=== PATIENT | male | born 1940 | race Two or more races ===

== ENCOUNTER 2019-10-18 08:26 | Observation (INO) | payer MEDICARE ==
--- NOTE | 2019-10-18 08:39 | ER Document Report ---
ED General - General Chief Complaint: Cough Stated Complaint: COUGHING UP BLOOD Time Seen by Provider: 10/18/19 08:39 - HPI Notes: 78-year-old male with a medical history of COPD, gout, type 2 diabetes, hypertension, GERD, hyperlipidemia presents to the emergency room by private vehicle for complaints of shortness of breath, body aches, hemoptysis, abdominal pain bilateral leg swelling that started within the last few days. Patient recently traveled from [place] on October 08 by plane, arrived and since that time he has felt weak. Patient started to complain of the body aches, shortness of breath and hemoptysis yesterday. Daughter also reported that he had bilateral leg swelling since he came back from the plane. Patient has been a smoker for over 60 years and quit over a year ago, daughter states that since he has been at hotel he has not been able to sleep in a chair so she thinks this may be why he is coughing more. Patient states that he did have heart surgery with stents over 20 years ago, did have a stent placed in the right carotid last year as well as a coil for an aneurysm in the back of his head a year ago. Daughter also states that the patient has a spot that showed up on her chest x- ray and he is planned to have a CT of his chest back in [place] but has not happened thus far. Has not tried any [id number] medications. Denies any chest pain, nausea vomiting diarrhea, abdominal pain, bilateral leg swelling - Related Data Allergies/Adverse Reactions: No Known Allergies Allergy (Verified 10/18/19 09:33) Past Medical History - General Information source: Patient - Social History Smoking Status: Former Smoker Family History: Reviewed & Not Pertinent Physical Exam - Vital signs Vitals: Temp Pulse Resp BP Pulse Ox 100.6 F H 105 H 24 H 188/62 H 95 10/18/19 08:32 10/18/19 08:32 10/18/19 08:32 10/18/19 08:32 10/18/19 08:32 - Notes Notes: MEDICATIONS: I agree with the patient medications as charted by the RN. ALLERGIES: I agree with the allergies as charted by the RN. PAST MEDICAL HISTORY/PAST SURGICAL HISTORY: Reviewed and agree as charted by RN. SOCIAL HISTORY: Reviewed and agree as charted by RN. FAMILY HISTORY: No significant familial comorbid conditions directly related to patient complaint EXAM: Reviewed vital signs as charted by RN. PHYSICAL EXAMINATION:reviewed vital signs by RN GENERAL: Chronically ill well-nourished and in no acute distress. Ready of hearing HEAD: Atraumatic, normocephalic. EYES: Pupils equal round and reactive to light, extraocular movements intact, sclera anicteric, conjunctiva are normal. ENT: Nares patent, oropharynx clear without exudates. Moist mucous membranes. NECK: Normal range of motion, supple without lymphadenopathy LUNGS: Breath sounds clear to auscultation bilaterally and equal. No wheezes rales or rhonchi. HEART: Regular rate and rhythm without murmurs ABDOMEN: Soft, nontender, nondistended abdomen. No guarding, no rebound. No masses appreciated. Musculoskeletal: Normal range of motion, no pitting or edema. No cyanosis. Bilateral leg swelling. Distal pulses palpable +2 NEUROLOGICAL: Cranial nerves grossly intact. Speaks Uzbek, half Wolof, normal gait. Normal sensory, motor exams PSYCH: Normal mood, normal affect. SKIN: Warm, Dry, normal turgor, no rashes or lesions noted. Course - Re-evaluation Re-evalutation: 10/18/19 10:30 Slightly febrile, hypertensive and slightly tachycardic. CBC shows no leukocytosis however does have an increase in his segmented neutrophils. CMP shows a creatinine is 0.88, BUN 24, BNP is 43, lactic is 1.9. Rapid strep negative. Troponin negative. CRP 17.9. chest x-ray does show right lower lobe pneumonia, with possible atelectasis on the left. Per PERC rule, PE cannot be e xcluded due to patient being over 50 years old, heart rate of 100, leg swelling, hemoptysis. Bilateral lower venous Dopplers negative for DVTs. CTA of the chest shows right upper lobe, right middle lobe and right lower lobe pneumonia as well as left lower lobe pneumonia, no PE, no dissection noted. Updated daughter about patient's status, waiting to see if patient will be accepted for admission via phone call. consulted with with the hospitalist, , for admission due to the fact that patient does have extensive pneumonia majority of his lobes, is still coughing up blood, is here out of town does not have any resources available to him medically, for possible admission. Dr. Bourne will place patient in observation, COVID test pending for management of his pneumonia and coughing up blood to the COVID section of the hospital. Patient and family were agreeable this plan of care. - Vital Signs Vital signs: Temp Pulse Resp BP Pulse Ox 98.8 F 73 20 144/51 H 98 10/18/19 17:37 10/18/19 17:37 10/18/19 17:37 10/18/19 17:37 10/18/19 17:37 - Laboratory Result Diagrams: 10/18/19 09:25 10/18/19 09:25 Laboratory results interpreted by me: 10/18/19 10/18/19 10/18/19 09:25 09:25 09:25 RBC 3.74 L Hgb 11.1 L Hct 33.1 L RDW 17.2 H Seg Neutrophils % 80.8 H BUN 25 H Glucose 223 H Alkaline Phosphatase 183 H C-Reactive Protein NT-Pro-B Natriuret Pep 483 H Urine Protein Urine Glucose (UA) Urine Ketones Urine Urobilinogen Ur Leukocyte Esterase 10/18/19 10/18/19 09:25 11:45 RBC Hgb Hct RDW Seg Neutrophils % BUN Glucose Alkaline Phosphatase C-Reactive Protein 17.4 H NT-Pro-B Natriuret Pep Urine Protein 100 H Urine Glucose (UA) 150 H Urine Ketones TRACE H Urine Urobilinogen 4.0 H Ur Leukocyte Esterase TRACE H Discharge - Discharge Clinical Impression: Pneumonia Condition: Stable Disposition: ADMITTED OBSERVATION Admitting Provider: [facility] Admitted: Telemetry
[2019-10-18] MEDS ORDERED: ACETAMINOPHEN 325 MG TABLET PO ONE (09:30)
[2019-10-18 09:41] LABS: ABSOLUTE LYMPHOCYTES (AUTO) 1.1 10^3/uL (0.5-4.7); ABSOLUTE MONOCYTES (AUTO) 0.5 10^3/uL (0.1-1.4); ABSOLUTE NEUT (AUTO) 6.8 10^3/uL (1.7-8.2); BASOPHILS % (AUTO) 0.2 % (0-2); EOSINOPHILS % (AUTO) 0.5 % (0-6); HEMATOCRIT 33.1 % (37.9-51.0); HEMOGLOBIN 11.1 g/dL (13.5-17.0); MEAN CORPUSCULAR HEMOGLOBIN 29.8 pg (27.0-33.4); MEAN CORPUSCULAR HGB CONC 33.6 g/dL (32.0-36.0); MEAN CORPUSCULAR VOLUME 89 fl (80-97); MONOCYTES % (AUTO) 5.5 % (3-13); PLATELET COUNT 174 10^3/uL (150-450); RED BLOOD COUNT 3.74 10^6/uL (4.35-5.55); RED CELL DISTRIBUTION WIDTH 17.2 % (11.5-14.0); SEGMENTED NEUTROPHILS % (AUTO) 80.8 % (42-78); TOTAL CELLS COUNTED % (AUTO) 100 %; WHITE BLOOD COUNT 8.4 10^3/uL (4.0-10.5)
[2019-10-18 10:01] LABS: PROTHROMBIN TIME 12.4 SEC (11.4-15.4)
[2019-10-18 10:02] LABS: PARTIAL THROMBOPLASTIN TIME 32.9 SEC (23.5-35.8)
[2019-10-18 10:10] LABS: BLOOD UREA NITROGEN 25 mg/dL (7-20); CALCIUM 8.9 mg/dL (8.4-10.2); GLUCOSE 223 mg/dL (75-110)
[2019-10-18 10:11] LABS: ALBUMIN 4.3 g/dL (3.5-5.0); ALKALINE PHOSPHATASE 183 U/L (38-126); ANION GAP 11 (5-19); ASPARTATE AMINO TRANSFERASE 23 U/L (17-59); BILIRUBIN,DIRECT 0.2 mg/dL (0.0-0.4); BILIRUBIN,TOTAL 0.9 mg/dL (0.2-1.3); CARBON DIOXIDE 26 mmol/L (22-30); CHLORIDE 105 mmol/L (98-107); POTASSIUM 4.1 mmol/L (3.6-5.0); TOTAL PROTEIN 7.5 g/dL (6.3-8.2)
--- NOTE | 2019-10-18 10:14 | RADIOLOGY REPORT (SQ) ---
EXAM DESCRIPTION: CHEST SINGLE VIEW IMAGES COMPLETED DATE/TIME: 10/18/2019 8:54 am REASON FOR STUDY: Hemoptysis, fever COMPARISON: None. EXAM PARAMETERS: NUMBER OF VIEWS: One view. TECHNIQUE: Single frontal radiographic view of the chest acquired. RADIATION DOSE: NA LIMITATIONS: None. FINDINGS: LUNGS AND PLEURA: Focal consolidation in the right upper lobe. Patchy areas of opacity in the left lower lobe. No pleural effusion or pneumothorax. MEDIASTINUM AND HILAR STRUCTURES: No masses. Contour normal. HEART AND VASCULAR STRUCTURES: Moderate cardiomegaly. No pulmonary vascular congestion. BONES: No acute findings. HARDWARE: None in the chest. OTHER: No other significant finding. IMPRESSION: Right upper lobe pneumonia. Atelectasis versus consolidation left lower lobe. TECHNICAL DOCUMENTATION: JOB ID: [id number] 2010 [employer]- All Rights Reserved Reading location - IP/workstation name: [email or web address]
[2019-10-18 10:23] LABS: TROPONIN I 0.012 ng/mL
[2019-10-18] MEDS ORDERED: NORMAL SALINE 1000 ML 1,000 ML IV ONE (11:37)
[2019-10-18 12:07] LABS: APPEARANCE,URINE CLEAR; BILIRUBIN,URINE NEGATIVE (NEGATIVE); COLOR,URINE YELLOW; GLUCOSE, URINE 150 mg/dL (NEGATIVE); KETONES,URINE TRACE mg/dL (NEGATIVE); LEUKOCYTE ESTERASE,URINE TRACE (NEGATIVE); NITRITE,URINE NEGATIVE (NEGATIVE); PROTEIN,URINE 100 mg/dL (NEGATIVE); URINE SPECIFIC GRAVITY 1.021
--- NOTE | 2019-10-18 13:24 | RADIOLOGY REPORT (SQ) ---
EXAM DESCRIPTION: VENOUS BILATERAL LOWER IMAGES COMPLETED DATE/TIME: 10/18/2019 11:35 am REASON FOR STUDY: bilateral leg swelling, recent travel, SOB COMPARISON: None. TECHNIQUE: Dynamic and static de [place]antos scale and color images acquired of both lower extremity venous sy stems. Selected spectral images acquired with additional compression and augmentation maneuvers. Imag es stored on PACS. LIMITATIONS: None. FINDINGS: RIGHT LEG COMMON FEMORAL AND FEMORAL: Normal phasicity, compression and augmentation. No visualized echogenic m aterial on de [place] santos scale. No defects on color images. POPLITEAL: Normal compression and augmentation. No visualized echogenic material on de [place]antos scale. No de fects on color images. CALF VESSELS: Limited evaluation. Normal compression and augmentation is. No visualized echogenic ma terial on de [place] santos scale. No defects on color image. GSV AND SSV: Normal compression. No visualized echogenic material on de [place] santos scale. No defects on color images. ANY DEEP VENOUS INSUFFICIENCY: Not evaluated. ANY EVIDENCE OF POPLITEAL CYST: No. OTHER: No other significant finding. LEFT LEG COMMON FEMORAL AND FEMORAL: Normal phasicity, compression and augmentation. No visualized echogenic m aterial on de [place] santos scale. No defects on color images. POPLITEAL: Normal compression and augmentation. No visualized echogenic material on de [place]antos scale. No de fects on color images. CALF VESSELS: Limited evaluation. Normal compression and augmentation as visualized. No visualized e chogenic material on de [place] santos scale. No defects on color images. GSV AND SSV: Normal compression. No visualized echogenic material on de [place]antos scale. No defects on color images. ANY DEEP VENOUS INSUFFICIENCY: Not evaluated. ANY EVIDENCE POPLITEAL CYST: No. OTHER: No other significant finding. IMPRESSION: NO EVIDENCE DVT OR SVT IN EITHER LEG. TECHNICAL DOCUMENTATION: JOB ID: [id number] 2010 [employer]- All Rights Reserved Reading location - IP/workstation name: [email or web address]
--- NOTE | 2019-10-18 13:47 | RADIOLOGY REPORT (SQ) ---
EXAM DESCRIPTION: CTA CHEST IMAGES COMPLETED DATE/TIME: 10/18/2019 12:16 pm REASON FOR STUDY: Hemoptysis, fever, shortness of breath. Consolidation in the right upper lobe on chest radiograph. COMPARISON: Chest radiograph same date. TECHNIQUE: CT scan of the chest performed using helical scanning technique with dynamic intravenous contrast injection. Images reviewed with lung, soft tissue and bone windows. Reconstructed coronal and sagittal MPR images reviewed. Additional 3 dimensional post-processing performed to develop Maximal Intensity Projection images (AZ P). All images stored on PACS. All CT scanners at this facility use dose modulation, iterative reconstruction, and/or weight based d osing when appropriate to reduce radiation dose to as low as reasonably achievable (ALARA). [facility]: Dose Right [facility]: CareDose [facility]: Dose Right [facility]: Teradose 4D [facility]: [employer] CONTRAST TYPE AND DOSE: contrast/concentration: Isovue 350.00 mmol/ml; Total Contrast Delivered: 69. 0 ml; Total Saline Delivered: 77.0 ml Contrast bolus optimized for the pulmonary arteries. Not diagnostic for the aorta. RENAL FUNCTION: GFR > 60. RADIATION DOSE: CT Rad equipment meets quality standard of care and radiation dose reduction techniq ues were employed. CTDIvol: 16.6 - 19.8 mGy. DLP: 584 mGy-cm. . LIMITATIONS: None. FINDINGS: LUNGS AND PLEURA: There is patchy consolidation in the right upper lobe, right middle lobe and left lower lobe and to a lesser extent the right lower lobe. No pleural effusion or pneumothora x. AORTA AND GREAT VESSELS: No aneurysm. Contrast bolus not optimized for the aorta. HEART: There are pericardial calcifications. No pericardial effusion. No significant coronary artery calcifications. PULMONARY ARTERIES: No emboli visualized in the main pulmonary arteries or the segmental branches. HILAR AND MEDIASTINAL STRUCTURES: No identified masses or abnormal nodes. HARDWARE: None in the chest. UPPER ABDOMEN: No significant findings. Limited exam. THYROID AND OTHER SOFT TISSUES: No masses. No adenopathy. BONES: No acute or significant finding. 3D MIPS: Confirm above findings. OTHER: No other significant finding. IMPRESSION: 1. No pulmonary embolism. 2. Multifocal pneumonia. 3. Pericardial calcifications. No pericardial effusion. COMMENT: Quality ID # [id number]: Final reports with documentation of one or more dose reduction techniques (e.g., Automated exposure control, adjustment of the mA and/or kV according to patient size, use of iterative reconstruction technique) TECHNICAL DOCUMENTATION: JOB ID: [id number] 2010 [employer]- All Rights Reserved Reading location - IP/workstation name: [id number]
[2019-10-18 15:13] LABS: C-REACTIVE PROTEIN 17.4 mg/L (<10.0)
[2019-10-18] MEDS ORDERED: IPRATROPIUM/ALBUTEROL 0.5-2.5 MG/3 ML AMPUL NEB PRN (15:48)
[2019-10-18 15:52] LABS: FERRITIN 23.8 ng/mL (17.9-464.0)
--- NOTE | 2019-10-18 17:03 | PDOC H&P ---
History of Present Illness Admission Date/PCP: October 18, 2019 Patient complains of: Hemoptysis History of Present Illness: BRIGID LOPEZ is a 78 year old male, PMH of T2DM,HLD, CAD with stent, COPD, former smoker who came in the ED due to hemoptysis. Patient speaks limited Malay and an hooker machine tender was used. He flew in [facility] to visit his son and is currently staying at a hotel. He developed hemoptysis last night described as streaks of blood mixed with sputum with associated subjective fever and chills. Per her daughter he would start coughing when he lays down in bed and also feels SOB. He also complains of bilateral leg swelling. He denies any SOB, exertional dyspnea, chest pain, palpitations. Daughter also states that the patient has a spot that showed up on her chest x-ray and he is planned to have a CT of his chest back in [place] but has not happened thus far per ED notes. In the ED, BP 124/52, HR 76, RR 17, T 100.6. CBC and CMP was unremarkable. CXR showed Right upper lobe pneumonia. Atelectasis vs consolidation left lower lobe. He was tested for COVID 19. He is admitted for observation. Currently has minimal hemoptysis, saturating 99% on room air. Past Medical History Cardiac Medical History: Reports: Hyperlipidema, Hypertension Pulmonary Medical History: Reports: Chronic Obstructive Pulmonary Disease (COPD) Neurological Medical History: Reports: Other - aneurysm brain s/p coiling Endocrine Medical History: Reports: Diabetes Mellitus Type 2 GI Medical History: Reports: None Musculoskeltal Medical History: Reports: None Skin Medical History: Reports: None Psychiatric Medical History: Reports: None Traumatic Medical History: Reports: None Hematology: Reports: None Infectious Medical History: Reports: None Past Surgical History Past Surgical History: Reports: Coronary Stent, Vascular Surgery - post aneu rysmal coiling Social History Information Source: Patient Lives with: Family Smoking Status: Former Smoker Cigarettes Packs Per Day: 1 Number of Years Smokin Frequency of Alcohol Use: None Hx Recreational Drug Use: No Drugs: None Family History Parental Family History Reviewed: Yes - Hx of TB mother Children Family History Reviewed: Yes Sibling(s) Family History Reviewed.: Yes Medication/Allergy Home Medications: Aspirin [Adult Low Dose Aspirin EC] 81 mg PO DAILY 10/18/19 Atorvastatin Calcium [Lipitor 80 mg Tablet] 80 mg PO DAILY 10/18/19 Glipizide [Glocotrol 5 Mg Tablet] 5 mg PO BID 10/18/19 Indomethacin 50 mg PO BID 10/18/19 Metformin HCl [Glucophage 500 mg Tablet] 500 mg PO BIDACBS 10/18/19 Pantoprazole Sodium 20 mg PO DAILY 10/18/19 Pioglitazone HCl [Actos 30 mg Tablet] 30 mg PO DAILY 10/18/19 Allergies/Adverse Reactions: No Known Allergies Allergy (Verified 10/18/19 09:33) Review of Systems Constitutional: PRESENT: chills Cardiovascular: PRESENT: orthropnea Respiratory: PRESENT: hemoptysis Gastrointestinal: PRESENT: as per HPI Genitourinary: PRESENT: as per HPI Neurological: PRESENT: weakness Physical Exam Vital Signs: Temp Pulse Resp BP Pulse Ox 99.1 F 105 H 16 146/61 H 97 10/18/19 10:59 10/18/19 08:32 10/18/19 15:01 10/18/19 15:01 10/18/19 15:01 Intake & Output 10/17/19 10/18/19 10/19/19 06:59 06:59 06:59 Intake Total 1000 Balance 1000 Weight 88 kg General appearance: PRESENT: no acute distress, cooperative, other - maltese speaking, limited pashto Eye exam: PRESENT: EOMI, PERRLA Mouth exam: PRESENT: moist Neck exam: PRESENT: full ROM. ABSENT: JVD Respiratory exam: PRESENT: rales, symmetrical, unlabored. ABSENT: wheezes Cardiovascular exam: PRESENT: RRR, +S1, +S2 Pulses: PRESENT: +2 pedal pulses bilateral GI/Abdominal exam: PRESENT: normal bowel sounds, soft. ABSENT: rebound, tenderness Rectal exam: PRESENT: deferred Extremities exam: PRESENT: +2 edema Musculoskeletal exam: PRESENT: full ROM Neurological exam: PRESENT: alert, oriented to person, oriented to place, oriented to time Results Laboratory Results: 10/18/19 09:25 10/18/19 09:25 10/18/19 10/18/19 10/18/19 09:25 09:25 09:25 WBC 8.4 RBC 3.74 L Hgb 11.1 L Hct 33.1 L MCV 89 MCH 29.8 MCHC 33.6 RDW 17.2 H Plt Count 174 Seg Neutrophils % 80.8 H Sodium 142.2 Potassium 4.1 Chloride 105 Carbon Dioxide 26 Anion Gap 11 BUN 25 H Creatinine 0.88 Est GFR ( Amer) > 60 Glucose 223 H Lactic Acid 1.9 Calcium 8.9 Ferritin Total Bilirubin 0.9 AST 23 Alkaline Phosphatase 183 H C-Reactive Protein Total Protein 7.5 Albumin 4.3 Urine Color Urine Appearance Urine pH Ur Specific [place] Urine Protein Urine Glucose (UA) Urine Ketones Urine Blood Urine Nitrite Ur Leukocyte Esterase Urine WBC (Auto) Urine RBC (Auto) 10/18/19 10/18/19 09:25 11:45 WBC RBC Hgb Hct MCV MCH MCHC RDW Plt Count Seg Neutrophils % Sodium Potassium Chloride Carbon Dioxide Anion Gap BUN Creatinine Est GFR ( Amer) Glucose Lactic Acid Calcium Ferritin 23.80 Total Bilirubin AST Alkaline Phosphatase C-Reactive Protein 17.4 H Total Protein Albumin Urine Color YELLOW Urine Appearance CLEAR Urine pH 5.0 Ur Specific [place] 1.021 Urine Protein 100 H Urine Glucose (UA) 150 H Urine Ketones TRACE H Urine Blood NEGATIVE Urine Nitrite NEGATIVE Ur Leukocyte Esterase TRACE H Urine WBC (Auto) 1 Urine RBC (Auto) 5 10/18/19 09:25 Troponin I 0.012 NT-Pro-B Natriuret Pep 483 H Impressions: Chest X-Ray 10/18/19 08:39 IMPRESSION: Right upper lobe pneumonia. Atelectasis versus consolidation left lower lobe. Venous Doppler Study 10/18/19 09:30 IMPRESSION: NO EVIDENCE DVT OR SVT IN EITHER LEG. Chest/Abdomen CTA 10/18/19 09:37 IMPRESSION: 1. No pulmonary embolism. 2. Multifocal pneumonia. 3. Pericardial calcifications. No pericardial effusion. Assessment and Plan - Diagnosis (1) Pneumonia Qualifiers: Pneumonia type: due to unspecified organism Laterality: right Lung location: upper lobe of lung Qualified Code(s): J18.9 - Pneumonia, unspecified organism Is this a current diagnosis for this admission?: Yes Plan: - came in with 1 day hx of minimal hemoptysis, fever, lower leg edema - no known COVID exposure, flew in from [place] 2 days prior - known COPD not on inhaler, former smoker - hx of spot in his lung per daughter - stable VS, not requiring O2 support - WBC 11.1, BUN 25 crea 0.88 - COVID pending, - CTA negative for PE, multifocal pneumonia - CXR right upper lobe pneumonia. Atelectasis or consolidation left lower lobe. - admit for Observation - will start on Ceftri/azithro for CAP (2) Suspected 2019 novel coronavirus infection Is this a current diagnosis for this admission?: Yes Plan: - came in with hemoptysis, fever, orthopnea - CXR Right upper lobe pneumonia - CTA chest multifocal pneumonia (3) Type 2 diabetes mellitus Qualifiers: Diabetes mellitus complication status: without complication Is this a current diagnosis for this admission?: Yes Plan: - Sliding scale insulin - hold glipizide, metformin and pioglitazone - accucheck - hypoglycemia protocol (4) CAD (coronary artery disease) Qualifiers: Coronary Disease-Associated Artery/Lesion type: unspecified vessel or lesion type [place] vs. transplanted heart: [place] heart Associated angina: without angina Qualified Code(s): I25.10 - Atherosclerotic heart disease of [place] coronary artery without angina pectoris Is this a current diagnosis for this admission?: Yes Plan: - with stent placement few years ago - no chest pain currently - no prior hx of CHF - continue Aspirin, lipitor (5) COPD (chronic obstructive pulmonary disease) Qualifiers: COPD type: unspecified COPD Qualified Code(s): J44.9 - Chronic obstructive pulmonary disease, unspecified Is this a current diagnosis for this admission?: Yes Plan: - 15 years, 1ppd, quit 1 year ago - not on any inhaler, no home O2 - will start duoneb PRN (6) Hyperlipidemia Qualifiers: Hyperlipidemia type: unspecified Qualified Code(s): E78.5 - Hyperlipidemia, unspecified Is this a current diagnosis for this admission?: Yes Plan: - continue Lipitor (7) Essential hypertension Is this a current diagnosis for this admission?: Yes Plan: - BP 121/50 - does not seem to be on any medication - will monitor BP - if high will start Losartan since he also has known CAD with stent (8) Carotid artery stenosis Qualifiers: Laterality: unspecified laterality Qualified Code(s): I65.29 - Occlusion and stenosis of unspecified carotid artery Is this a current diagnosis for this admission?: Yes Plan: - s/p stent placement - on aspirin and lipitor (9) Cerebral aneurysm without rupture Is this a current diagnosis for this admission?: Yes Plan: - s/p coiling few years ago - Plan Summary Summary: Patient will be admitted for obs. He currently does not require O2 with a normal white count. Will await COVID test result - Time Time Spent with patient: 35 or more minutes Medications reviewed and adjusted accordingly: Yes Anticipated Discharge Disposition: Home, Self Care Anticipated Discharge Timeframe: within 48 hours
[2019-10-18] MEDS ORDERED: AZITHROMYCIN 500 MG in DEXTROSE 5%-WATER 250 ML IV SCH (18:00)
[2019-10-18] MEDS: AZITHROMYCIN 250 MG TABLET PO SCH (18:14)
[2019-10-18] MEDS: CEFTRIAXONE 2 GM/D5W RTU 2 GM/50 ML RTUPB IV SCH (18:15)
[2019-10-18] MEDS: HEPARIN SOD (PORCINE) 5,000 UNIT/ML 1 ML VIAL SUBCUT SCH (22:06)
[2019-10-19 05:17] LABS: ABSOLUTE EOSINOPHILS # (AUTO) 0.1 10^3/uL (0.0-0.6); ABSOLUTE LYMPHOCYTES (AUTO) 2.2 10^3/uL (0.5-4.7); ABSOLUTE MONOCYTES (AUTO) 0.5 10^3/uL (0.1-1.4); ABSOLUTE NEUT (AUTO) 7.1 10^3/uL (1.7-8.2); BASOPHILS % (AUTO) 0.4 % (0-2); EOSINOPHILS % (AUTO) 1.3 % (0-6); HEMATOCRIT 29.4 % (37.9-51.0); HEMOGLOBIN 9.9 g/dL (13.5-17.0); LYMPHOCYTES % (AUTO) 21.7 % (13-45); MEAN CORPUSCULAR HEMOGLOBIN 29.9 pg (27.0-33.4); MEAN CORPUSCULAR HGB CONC 33.6 g/dL (32.0-36.0); MEAN CORPUSCULAR VOLUME 89 fl (80-97); MONOCYTES % (AUTO) 5.4 % (3-13); PLATELET COUNT 143 10^3/uL (150-450); RED BLOOD COUNT 3.29 10^6/uL (4.35-5.55); RED CELL DISTRIBUTION WIDTH 17.7 % (11.5-14.0); SEGMENTED NEUTROPHILS % (AUTO) 71.2 % (42-78); TOTAL CELLS COUNTED % (AUTO) 100 %
[2019-10-19 05:37] LABS: ALBUMIN 3.5 g/dL (3.5-5.0); ALKALINE PHOSPHATASE 130 U/L (38-126); ANION GAP 11 (5-19); ASPARTATE AMINO TRANSFERASE 22 U/L (17-59); BILIRUBIN,DIRECT 0.3 mg/dL (0.0-0.4); BILIRUBIN,TOTAL 0.9 mg/dL (0.2-1.3); BLOOD UREA NITROGEN 18 mg/dL (7-20); CALCIUM 8.3 mg/dL (8.4-10.2); CARBON DIOXIDE 23 mmol/L (22-30); CHLORIDE 107 mmol/L (98-107); GLUCOSE 157 mg/dL (75-110); POTASSIUM 4.2 mmol/L (3.6-5.0); TOTAL PROTEIN 6.5 g/dL (6.3-8.2)
[2019-10-19] MEDS ORDERED: DEXTROSE 50%-WATER 25 GM/50 ML DISP.SYRIN IV PRN ×2 (06:24)
[2019-10-19] MEDS ORDERED: GLUCAGON,HUMAN RECOMB 1 MG INJ IM PRN (06:24)
[2019-10-19] MEDS ORDERED: DEXTROSE 40% GEL 15 GM TUBE PO PRN ×2 (06:24)
[2019-10-19] MEDS: HEPARIN SOD (PORCINE) 5,000 UNIT/ML 1 ML VIAL SUBCUT SCH ×3 (07:00→21:34)
[2019-10-19] MEDS: PANTOPRAZOLE SODIUM 20 MG TABLET.DR PO SCH (07:00)
[2019-10-19] MEDS ORDERED: BENZONATATE 100 MG CAPSULE PO PRN (09:25)
[2019-10-19] MEDS: INSULIN LISPRO 100 UNIT/ML 3 ML VIAL SUBCUT SCH ×4 (09:25→21:34)
[2019-10-19] MEDS ORDERED: BENZOCAINE/MENTHOL SORE THROAT LOZENGE BUCCAL PRN (09:26)
[2019-10-19] MEDS: ASPIRIN 81 MG TABLET, ENT COATED PO SCH (09:26)
[2019-10-19] MEDS: FUROSEMIDE INJ/PF 40 MG/4 ML SDV IV SCH (09:26)
--- NOTE | 2019-10-19 13:21 | PDOC PROGRESS REPORT ---
Subjective Progress Note for:: 10/19/19 Subjective:: Day 2 of hospital stay. He was seen and examined at baseline. He complains of cough with minimal blood tinged sputum. He denies any fever, chest pain, SOB. He has bilateral back pain that is worse when he coughs. He is saturating 98% on room air. Appetite is good. Awaiting COVID testing. Reason For Visit: PNEUMONIA Physical Exam Vital Signs: Temp Pulse Resp BP Pulse Ox 98.4 F 76 18 121/50 L 95 10/19/19 07:54 10/19/19 07:00 10/19/19 03:19 10/19/19 03:19 10/19/19 03:19 Intake & Output 10/18/19 10/19/19 10/20/19 06:59 06:59 06:59 Intake Total 1470 Output Total 1000 Balance 470 Weight 81.6 kg Results Laboratory Results: 10/19/19 04:20 10/19/19 04:20 10/18/19 10/19/19 10/19/19 09:25 04:20 04:20 WBC 10.0 RBC 3.29 L Hgb 9.9 L Hct 29.4 L MCV 89 MCH 29.9 MCHC 33.6 RDW 17.7 H Plt Count 143 L Seg Neutrophils % 71.2 Sodium 140.9 Potassium 4.2 Chloride 107 Carbon Dioxide 23 Anion Gap 11 BUN 18 Creatinine 0.72 Est GFR ( Amer) > 60 Glucose 157 H Calcium 8.3 L Ferritin 23.80 Total Bilirubin 0.9 AST 22 Alkaline Phosphatase 130 H C-Reactive Protein 17.4 H Total Protein 6.5 Albumin 3.5 10/18/19 09:25 Troponin I 0.012 NT-Pro-B Natriuret Pep 483 H Impressions: Chest X-Ray 10/18/19 08:39 IMPRESSION: Right upper lobe pneumonia. Atelectasis versus consolidation left lower lobe. Venous Doppler Study 10/18/19 09:30 IMPRESSION: NO EVIDENCE DVT OR SVT IN EITHER LEG. Chest/Abdomen CTA 10/18/19 09:37 IMPRESSION: 1. No pulmonary embolism. 2. Multifocal pneumonia. 3. Pericardial calcifications. No pericardial effusion. Assessment and Plan - Diagnosis (1) Pneumonia Qualifiers: Pneumonia type: due to unspecified organism Laterality: right Lung location: upper lobe of lung Qualified Code(s): J18.9 - Pneumonia, unspecified organism Is this a current diagnosis for this admission?: Yes Plan: -came in with 1 day hx of minimal hemoptysis, fever, lower leg edema - no known COVID exposure, flew in from [place] 2 days prior - known COPD not on inhaler, former smoker - hx of spot in his lung per daughter - stable VS, not requiring O2 support - WBC 11.1>10.0, crea 0.88>0.72 - COVID pending, - CTA negative for PE, showed multifocal pneumonia - CXR right upper lobe pneumonia. Atelectasis or consolidation left lower lobe. - will start on Ceftri/azithro for CAP (2) Suspected 2019 novel coronavirus infection Is this a current diagnosis for this admission?: Yes Plan: - came in with hemoptysis, fever, orthopnea - CXR Right upper lobe pneumonia - CTA chest multifocal pneumonia - awaiting COVID testing (3) Type 2 diabetes mellitus Qualifiers: Diabetes mellitus complication status: without complication Is this a current diagnosis for this admission?: Yes Plan: - Sliding scale insulin - hold glipizide, metformin and pioglitazone - accucheck - hypoglycemia protocol (4) CAD (coronary artery disease) Qualifiers: Coronary Disease-Associated Artery/Lesion type: unspecified vessel or lesion type [place] vs. transplanted heart: [place] heart Associated angina: without angina Qualified Code(s): I25.10 - Atherosclerotic heart disease of [place] coronary artery without angina pectoris Is this a current diagnosis for this admission?: Yes Plan: - with stent placement few years ago - no chest pain currently - no prior hx of CHF, BNP 483 - continue Aspirin, lipitor (5) COPD (chronic obstructive pulmonary disease) Qualifiers: COPD type: unspecified COPD Qualified Code(s): J44.9 - Chronic obstructive pulmonary disease, unspecified Is this a current diagnosis for this admission?: Yes Plan: - 15 years, 1ppd, quit 1 year ago - not on any inhaler, no home O2 - will start duoneb PRN (6) Hyperlipidemia Qualifiers: Hyperlipidemia type: unspecified Qualified Code(s): E78.5 - Hyperlipidemia, unspecified Is this a current diagnosis for this admission?: Yes Plan: - continue Lipitor (7) Essential hypertension Is this a current diagnosis for this admission?: Yes Plan: - BP 121/50 - does not seem to be on any medication - will monitor BP - if high will start Losartan since he also has known CAD with stent (8) Carotid artery stenosis Qualifiers: Laterality: unspecified laterality Qualified Code(s): I65.29 - Occlusion and stenosis of unspecified carotid artery Is this a current diagnosis for this admission?: Yes Plan: - s/p stent placement - on aspirin and lipitor (9) Cerebral aneurysm without rupture Is this a current diagnosis for this admission?: Yes Plan: - s/p coiling few years ago - Plan Summary Summary: Patient will be admitted for obs. He currently does not require O2 with a normal white count. Will await COVID test result - Time Time Spent with patient: 25-34 minutes Medications reviewed and adjusted accordingly: Yes Anticipated Discharge Disposition: Home, Self Care Anticipated Discharge Timeframe: to be determined
[2019-10-19] MEDS: CEFTRIAXONE 2 GM/D5W RTU 2 GM/50 ML RTUPB IV SCH (18:42)
[2019-10-19] MEDS: AZITHROMYCIN 250 MG TABLET PO SCH (18:42)
[2019-10-19] MEDS ORDERED: ATORVASTATIN CALCIUM 80 MG TABLET PO SCH (22:00)
[2019-10-20] MEDS: PANTOPRAZOLE SODIUM 20 MG TABLET.DR PO SCH (05:29)
[2019-10-20] MEDS: HEPARIN SOD (PORCINE) 5,000 UNIT/ML 1 ML VIAL SUBCUT SCH (05:30)
--- NOTE | 2019-10-20 06:49 | PDOC DISCHARGE SUMMARY ---
Impression - Admit/DC Date/PCP Admission Date/Primary Care Provider: 10/18/19 16:09 Brigid Mukherjee is a 78-year-old male past medical history of type 2 diabetes, hyperlipidemia, coronary artery disease with stent, COPD, former smoker who came in the ED due to hemoptysis. Patient speaks limited Dutch and an anvilsmith was used. He flew in [facility] to visit his son and is currently staying at a hotel. He developed hemoptysis last night described as streaks of blood mixed with sputum with associated subjective fever and chills. Per her daughter he would start coughing when he lays down in bed and also feels SOB. He also complains of bilateral leg swelling. He denies any SOB, exertional dyspnea, chest pain, palpitations. Daughter also states that the patient has a spot that showed up on her chest x-ray and he is planned to have a CT of his chest back in [place] but has not happened thus far per ED notes. In the ED, BP 124/52, HR 76, RR 17, T 100.6. CBC and CMP was unremarkable. CXR showed Right upper lobe pneumonia. Atelectasis vs consolidation left lower lobe. He was tested for COVID 19. He is admitted for observation. Currently has minimal hemoptysis, saturating 99% on room air. Discharge Date: 10/20/19 - Discharge Diagnosis (1) Pneumonia Is this a current diagnosis for this admission?: Yes (2) Suspected 2019 novel coronavirus infection Is this a current diagnosis for this admission?: Yes (3) Type 2 diabetes mellitus Is this a current diagnosis for this admission?: Yes (4) CAD (coronary artery disease) Is this a current diagnosis for this admission?: Yes (5) COPD (chronic obstructive pulmonary disease) Is this a current diagnosis for this admission?: Yes (6) Hyperlipidemia Is this a current diagnosis for this admission?: Yes (7) Essential hypertension Is this a current diagnosis for this admission?: Yes (8) Carotid artery stenosis Is this a current diagnosis for this admission?: Yes (9) Cerebral aneurysm without rupture Is this a current diagnosis for this admission?: Yes - Assessment Summary: Patient will be admitted for obs. He currently does not require O2 with a normal white count. Will await COVID test result - Additional Information Resuscitation Status: Full Code Discharge Diet: As Tolerated Discharge Activity: Activity As Tolerated Prescriptions: Albuterol Sulfate [Albuterol Sulfate Hfa] 6.7 gm IH QID 7 Days #1 hfa.aer.ad Cefuroxime Axetil [Ceftin 500 mg Tablet] 1 tab PO BID 4 Days #8 tablet Benzonatate [Tessalon Perles 100 mg Capsule] 100 mg PO Q8HP PRN 7 Days #21 capsule PRN Reason: Home Medications: Glipizide [Glucotrol 5 mg Tablet] 5 mg PO BID 10/18/19 Metformin HCl [Glucophage 500 mg Tablet] 500 mg PO BIDACBS 10/18/19 Pantoprazole Sodium 20 mg PO DAILY 10/18/19 Pioglitazone HCl [Actos 30 mg Tablet] 30 mg PO DAILY 10/18/19 Aspirin [Ecotrin 81 mg EC Tablet] 81 mg PO DAILY 10/19/19 Albuterol Sulfate [Albuterol Sulfate Hfa] 6.7 gm IH QID 7 Days #1 hfa.aer.ad 10/20/19 Atorvastatin Calcium [Lipitor 80 mg Tablet] 80 mg PO QHS tablet 10/20/19 Benzonatate [Tessalon Perles 100 mg Capsule] 100 mg PO Q8HP PRN 7 Days #21 capsule 10/20/19 Cefuroxime Axetil [Ceftin 500 mg Tablet] 1 tab PO BID 4 Days #8 tablet 10/20/19 History of Present Illiness History of Present Illness: BRIGID MUKHERJEE is a 78 year old male, PMH of T2DM,HLD, CAD with stent, COPD, former smoker who came in the ED due to hemoptysis. Patient speaks limited Dutch and an anvilsmith was used. He flew in [facility] to visit his son and is currently staying at a hotel. He developed hemoptysis last night described as streaks of blood mixed with sputum with associated subjective fever and chills. Per her daughter he would start coughing when he lays down in bed and also feels SOB. He also complains of bilateral leg swelling. He denies any SOB, exertional dyspnea, chest pain, palpitations. Daughter also states that the patient has a spot that showed up on her chest x-ray and he is planned to have a CT of his chest back in [place] but has not happened thus far per ED notes. In the ED, BP 124/52, HR 76, RR 17, T 100.6. CBC and CMP was unremarkable. CXR showed Right upper lobe pneumonia. Atelectasis vs consolidation left lower lobe. He was tested for COVID 19. He is admitted for observation. Currently has minimal hemoptysis, saturating 99% on room air. Hospital Course Hospital Course: The patient was admitted for observation in the COVID unit as a PUI. He was started on antibiotics for COPD exacerbation, given cough syrups for his minimal hemoptysis. He did not require any oxygen support and was saturating 95% on room air. He remained afebrile, with good appetite. His COVID test came back negative on the third day of hospital stay. He was seen and examined at bedside he denies any shortness of breath chest pain, palpitations. Cough is minimal, afebrile. Still with minimal hemoptysis. He was discharged on cefuroxime to complete 5 days and was advised to follow-up with his primary care physician in [place] to further work-up the lung lesion his daughter says he has. Physical Exam Vital Signs: Temp Pulse Resp BP Pulse Ox 98.4 F 76 20 148/62 H 95 10/20/19 04:48 10/20/19 04:48 10/20/19 04:48 10/20/19 04:48 10/20/19 04:48 Intake & Output 10/18/19 10/19/19 10/20/19 06:59 06:59 06:59 Intake Total 1470 220 Output Total 1000 1535 Balance 470 -1315 Weight 81.6 kg 79.4 kg General appearance: PRESENT: no acute distress, cooperative Head exam: PRESENT: atraumatic, normocephalic Eye exam: PRESENT: EOMI, PERRLA Mouth exam: PRESENT: moist Neck exam: PRESENT: full ROM. ABSENT: JVD Respiratory exam: PRESENT: clear to auscultation [place], unlabored. ABSENT: rales, wheezes Cardiovascular exam: PRESENT: RRR, +S1, +S2 Pulses: PRESENT: normal carotid pulses Vascular exam: PRESENT: normal capillary refill, pallor GI/Abdominal exam: PRESENT: normal bowel sounds, soft. ABSENT: tenderness Extremities exam: PRESENT: full ROM Musculoskeletal exam: PRESENT: full ROM Neurological exam: PRESENT: alert, awake, oriented to person, oriented to place, oriented to time, oriented to situation Psychiatric exam: PRESENT: normal mood Results Laboratory Results: WBC 10.0 10^3/uL (4.0-10.5) 10/19/19 04:20 RBC 3.29 10^6/uL (4.35-5.55) L 10/19/19 04:20 Hgb 9.9 g/dL (13.5-17.0) L 10/19/19 04:20 Hct 29.4 % (37.9-51.0) L 10/19/19 04:20 MCV 89 fl (80-97) 10/19/19 04:20 MCH 29.9 pg (27.0-33.4) 10/19/19 04:20 MCHC 33.6 g/dL (32.0-36.0) 10/19/19 04:20 RDW 17.7 % (11.5-14.0) H 10/19/19 04:20 Plt Count 143 10^3/uL (150-450) L 10/19/19 04:20 Lymph % (Auto) 21.7 % (13-45) 10/19/19 04:20 [place] % (Auto) 5.4 % (3-13) 10/19/19 04:20 Eos % (Auto) 1.3 % (0-6) 10/19/19 04:20 Baso % (Auto) 0.4 % (0-2) 10/19/19 04:20 Absolute Neuts (auto) 7.1 10^3/uL (1.7-8.2) 10/19/19 04:20 Absolute Lymphs (auto) 2.2 10^3/uL (0.5-4.7) 10/19/19 04:20 Absolute Monos (auto) 0.5 10^3/uL (0.1-1.4) 10/19/19 04:20 Absolute Eos (auto) 0.1 10^3/uL (0.0-0.6) 10/19/19 04:20 Absolute Basos (auto) 0.0 10^3/uL (0.0-0.2) 10/19/19 04:20 Seg Neutrophils % 71.2 % (42-78) 10/19/19 04:20 PT 12.4 SEC (11.4-15.4) 10/18/19 09:25 INR 0.90 10/18/19 09:25 APTT 32.9 SEC (23.5-35.8) 10/18/19 09:25 Sodium 140.9 mmol/L (137-145) 10/19/19 04:20 Potassium 4.2 mmol/L (3.6-5.0) 10/19/19 04:20 Chloride 107 mmol/L (98-107) 10/19/19 04:20 Carbon Dioxide 23 mmol/L (22-30) 10/19/19 04:20 Anion Gap 11 (5-19) 10/19/19 04:20 BUN 18 mg/dL (7-20) 10/19/19 04:20 Creatinine 0.72 mg/dL (0.52-1.25) 10/19/19 04:20 Est GFR ( Amer) > 60 (>60) 10/19/19 04:20 Est GFR (MDRD) Non-Af > 60 (>60) 10/19/19 04:20 Glucose 157 mg/dL (75-110) H 10/19/19 04:20 POC Glucose 169 mg/dL (70-110) H 10/19/19 21:08 Lactic Acid 1.9 mmol/L (0.7-2.1) 10/18/19 09:25 Calcium 8.3 mg/dL (8.4-10.2) L 10/19/19 04:20 Ferritin 23.80 ng/mL (17.9-464.0) 10/18/19 09:25 Total Bilirubin 0.9 mg/dL (0.2-1.3) 10/19/19 04:20 Direct Bilirubin 0.3 mg/dL (0.0-0.4) 10/19/19 04:20 Neonat Total Bilirubin Not Reportable 10/19/19 04:20 Neonat Direct Bilirubin Not Reportable 10/19/19 04:20 Neonat Indirect Bili Not Reportable 10/19/19 04:20 AST 22 U/L (17-59) 10/19/19 04:20 ALT 14 U/L (<50) 10/19/19 04:20 Alkaline Phosphatase 130 U/L (38-126) H 10/19/19 04:20 Lactate Dehydrogenase 210 U/L (120-246) 10/18/19 16:15 Troponin I 0.012 ng/mL 10/18/19 09:25 C-Reactive Protein 17.4 mg/L (<10.0) H 10/18/19 09:25 NT-Pro-B Natriuret Pep 483 pg/mL (<450) H 10/18/19 09:25 Total Protein 6.5 g/dL (6.3-8.2) 10/19/19 04:20 Albumin 3.5 g/dL (3.5-5.0) 10/19/19 04:20 Urine Color YELLOW 10/18/19 11:45 Urine Appearance CLEAR 10/18/19 11:45 Urine pH 5.0 (5.0-9.0) 10/18/19 11:45 Ur Specific [place] 1.021 10/18/19 11:45 Urine Protein 100 mg/dL (NEGATIVE) H 10/18/19 11:45 Urine Glucose (UA) 150 mg/dL (NEGATIVE) H 10/18/19 11:45 Urine Ketones TRACE mg/dL (NEGATIVE) H 10/18/19 11:45 Urine Blood NEGATIVE (NEGATIVE) 10/18/19 11:45 Urine Nitrite NEGATIVE (NEGATIVE) 10/18/19 11:45 Urine Bilirubin NEGATIVE (NEGATIVE) 10/18/19 11:45 Urine Urobilinogen 4.0 mg/dL (<2.0) H 10/18/19 11:45 Ur Leukocyte Esterase TRACE (NEGATIVE) H 10/18/19 11:45 Urine WBC (Auto) 1 /HPF 10/18/19 11:45 Urine RBC (Auto) 5 /HPF 10/18/19 11:45 Squamous Epi Cells Auto 1 /HPF 10/18/19 11:45 Urine Mucus (Auto) FEW /LPF 10/18/19 11:45 Urine Ascorbic Acid NEGATIVE (NEGATIVE) 10/18/19 11:45 COVID-19 Source NASOPHARYNGEAL 10/18/19 10:00 COVID-19 (EVA) NOT DETECTED 10/18/19 10:00 Group A Strep Rapid NEGATIVE (NEGATIVE) 10/18/19 10:00 10/18/19 09:25 Troponin I 0.012 NT-Pro-B Natriuret Pep 483 H Impressions: Chest X-Ray 10/18/19 08:39 IMPRESSION: Right upper lobe pneumonia. Atelectasis versus consolidation left lower lobe. Venous Doppler Study 10/18/19 09:30 IMPRESSION: NO EVIDENCE DVT OR SVT IN EITHER LEG. Chest/Abdomen CTA 10/18/19 09:37 IMPRESSION: 1. No pulmonary embolism. 2. Multifocal pneumonia. 3. Pericardial calcifications. No pericardial effusion. Plan Health Concerns: -He is safe to fly via airplane back to [place] as he is not requiring any oxygen, saturating 98% on room air. His EKG was unremarkable Plan of Treatment: He is going to be sent home with inhalers for his COPD Needs to follow-up with primary care physician in [place] to work up lung lesion previously seen His COVID test is negative Time Spent: Less than 30 Minutes Stroke Is this a Stroke Patient?: No Acute Heart Failure - Is this a Heart Failure Patient?: No
[2019-10-20 06:54] LABS: ABSOLUTE BASOPHILS # (AUTO) 0.1 10^3/uL (0.0-0.2); ABSOLUTE EOSINOPHILS # (AUTO) 0.1 10^3/uL (0.0-0.6); ABSOLUTE LYMPHOCYTES (AUTO) 2.2 10^3/uL (0.5-4.7); ABSOLUTE MONOCYTES (AUTO) 0.6 10^3/uL (0.1-1.4); ABSOLUTE NEUT (AUTO) 5.8 10^3/uL (1.7-8.2); BASOPHILS % (AUTO) 0.6 % (0-2); EOSINOPHILS % (AUTO) 1.3 % (0-6); HEMATOCRIT 31.4 % (37.9-51.0); HEMOGLOBIN 10.8 g/dL (13.5-17.0); LYMPHOCYTES % (AUTO) 25.1 % (13-45); MEAN CORPUSCULAR HEMOGLOBIN 30.3 pg (27.0-33.4); MEAN CORPUSCULAR HGB CONC 34.5 g/dL (32.0-36.0); MEAN CORPUSCULAR VOLUME 88 fl (80-97); MONOCYTES % (AUTO) 6.7 % (3-13); PLATELET COUNT 162 10^3/uL (150-450); RED BLOOD COUNT 3.57 10^6/uL (4.35-5.55); RED CELL DISTRIBUTION WIDTH 16.9 % (11.5-14.0); SEGMENTED NEUTROPHILS % (AUTO) 66.3 % (42-78); TOTAL CELLS COUNTED % (AUTO) 100 %; WHITE BLOOD COUNT 8.7 10^3/uL (4.0-10.5)
[2019-10-20 07:08] LABS: ALBUMIN 3.7 g/dL (3.5-5.0); ALKALINE PHOSPHATASE 145 U/L (38-126); ANION GAP 11 (5-19); ASPARTATE AMINO TRANSFERASE 21 U/L (17-59); BILIRUBIN,DIRECT 0.3 mg/dL (0.0-0.4); BILIRUBIN,TOTAL 0.9 mg/dL (0.2-1.3); BLOOD UREA NITROGEN 14 mg/dL (7-20); CARBON DIOXIDE 25 mmol/L (22-30); CHLORIDE 104 mmol/L (98-107); GLUCOSE 163 mg/dL (75-110); POTASSIUM 4.3 mmol/L (3.6-5.0); TOTAL PROTEIN 6.7 g/dL (6.3-8.2)
[2019-10-20] MEDS: INSULIN LISPRO 100 UNIT/ML 3 ML VIAL SUBCUT SCH (09:24)
[2019-10-20] MEDS: ASPIRIN 81 MG TABLET, ENT COATED PO SCH (09:25)
[2019-10-20] MEDS: FUROSEMIDE INJ/PF 40 MG/4 ML SDV IV SCH (09:25)
[2019-10-20 09:40] VITALS: BP 144/51
[2019-10-20] MEDS ORDERED: ASPIRIN 81 MG TABLET, ENT COATED PO SCH (10:00)
--- NOTE | 2019-10-21 08:45 | EKG REPORT ---
SEVERITY:- ABNORMAL ECG - SINUS RHYTHM VENTRICULAR PREMATURE COMPLEX INCOMPLETE RBBB AND LAFB : Confirmed by: Terry Leslie MD 21-Oct-2019 08:45:26
== END 2019-10-20 10:32 | disposition home or self-care (01) ==
LOC: ER 08:26 → INTOOBSV 16:09 → EH 16:09 → 3N 17:27
PROVIDERS: ADMIT Internal Medicine; ATTEND Internal Medicine
DX: J18.9 Pneumonia, unspecified organism (principal); E11.9 Type 2 diabetes mellitus without complications; I25.10 Atherosclerotic heart disease of native coronary artery without angina pectoris; J44.1 Chronic obstructive pulmonary disease with (acute) exacerbation; E78.5 Hyperlipidemia, unspecified; I10 Essential (primary) hypertension; I65.29 Occlusion and stenosis of unspecified carotid artery; I67.1 Cerebral aneurysm, nonruptured; R60.0 Localized edema; M54.89 Other dorsalgia; R00.0 Tachycardia, unspecified; Z20.828 Contact with and (suspected) exposure to other viral communicable diseases; Z79.82 Long term (current) use of aspirin; Z79.84 Long term (current) use of oral hypoglycemic drugs; Z79.899 Other long term (current) drug therapy; Z95.5 Presence of coronary angioplasty implant and graft; Z87.891 Personal history of nicotine dependence; Z95.828 Presence of other vascular implants and grafts; Z87.09 Personal history of other diseases of the respiratory system
CPT/HCPCS: 99285; 96361; 96365; 36415 ×3; 87040; 87070; 87086; 87880; 82962 ×2; 82728; 83605; 83615; 85025 ×3; 85610; 85730; 86140; 80053 ×3; 81001; 84484; 83880; 93970; 71045; 71275; 93005; 93010; G0378 ×4; U0003; A9270 ×9; J1644 ×2; J1940 ×2; J7030; J0696 ×2; C9803; 87635; J1815; J3490